=== PATIENT | female | born 1980 | race Caucasian/White ===

== ENCOUNTER 2016-05-09 12:10 | Emergency (ER) | payer OTHER ==
[~2016-05-09] VITALS: Ht 167.6 cm; Wt 122.2 kg
[~2016-05-09 12:10] MED LIST: FLEXERIL10 MG PO; MOTRIN600 MG PO; NOHOMEMEDS
[2016-05-09] MEDS ORDERED: TOPAMAX50 MG PO ×2 (12:33→12:34)
[2016-05-09] MEDS ORDERED: DIAMOX250 MG PO (12:35)
[2016-05-09 15:34] VITALS: BP 132/68
== END 2016-05-09 15:48 | disposition home or self-care (01) ==
LOC: EME 12:10
PROC: 009U3ZX Drainage of Spinal Canal, Percutaneous Approach, Diagnostic (ICD-10-PCS; principal; 2016-05-09)
DX: G93.2 Benign intracranial hypertension (principal); F17.200 Nicotine dependence, unspecified, uncomplicated
CPT/HCPCS: 99281; 99284; J1885

== ENCOUNTER → 2017-07-13 | Outpatient (CLI) | payer OTHER ==
[~2017-07-13] MED LIST changes: +DIAMOX250 MG PO; +TOPAMAX50 MG PO
[2017-07-13 17:36] LABS: APPEARANCE CLEAR/COLORLESS; CSF PROTEIN 36 mg/dL (15-45); CSF TUBE NUMBER TUBE #4; RED CELL COUNT 0 /MM^3 (0-1); WHITE CELL COUNT 1 /MM^3 (0-5)
[2017-07-13 17:41] LABS: GLUCOSE, CSF 62 mg/dL (40-80)
[2017-07-13 17:51] LABS: CSF EOSINOPHILS ND % (0-25); MONONUCLEAR WBC'S ND % (50-90); POLYNUCLEAR WBC'S ND % (0-3)
== END | disposition home or self-care (01) ==
LOC: RAD 14:47
PROVIDERS: Psychiatry & Neurology Clinical Neurophysiology
PROC: 009U3ZZ Drainage of Spinal Canal, Percutaneous Approach (ICD-10-PCS; principal; 2017-07-13)
DX: R51 Headache (principal)
CPT/HCPCS: 62270; 77003; 82945; 83873 90; 83916 90; 84157; 87205; 89051

== ENCOUNTER → 2017-08-24 | Outpatient (CLI) | payer OTHER ==
[~2017-08-24] MED LIST changes: +ADVIL,NUPRIN,M200 MG PO; +BENADRYL25 MG PO; +TYLENOL COLD &1 EACH PO
== END | disposition home or self-care (01) ==
LOC: CDC 15:51
DX: Z01.810 Encounter for preprocedural cardiovascular examination (principal); K42.9 Umbilical hernia without obstruction or gangrene
CPT/HCPCS: 93000

== ENCOUNTER 2017-08-31 06:42 | Day surgery (SDC) | payer OTHER ==
[~2017-08-31] VITALS: Ht 170.2 cm; Wt 120.2 kg
[2017-08-31 07:50] VITALS: BP 138/79
[2017-08-31] MEDS ORDERED: OXYCONTIN15 MG PO (12:22)
[2017-08-31] MEDS ORDERED: COLACE100 MG PO (12:22)
[2017-08-31] MEDS ORDERED: DILAUDID4 MG PO (12:22)
[2017-08-31] MEDS ORDERED: ONDANSETRON HCL8 MG PO (12:22)
[2017-08-31 13:06] VITALS: BP 137/66
[2017-08-31 16:22] VITALS: BP 134/60
[2017-09-01 06:24] LABS: HEMATOCRIT 41.7 % (36.0-46.0); HEMOGLOBIN 13.6 G/DL (11.9-15.5); MCH 29.3 PG (29.0-34.0); MCHC 32.6 G/DL (30.0-36.0); MCV 89.9 FL (83-99); PLATELET COUNT 185 K/uL (156-360); RBC DIS.WIDTH-CV 14.1 % (11.8-14.6); RBC DIS.WIDTH-SD 46.7 % (39-53); RED BLOOD COUNT 4.64 M/uL (3.80-5.20); WHITE BLOOD COUNT 15.7 K/uL (4.1-10.2)
[2017-09-01 06:49] VITALS: BP 136/81
[2017-09-01 06:54] LABS: CHLORIDE 106 MEQ/L (99-109); GFR ESTIMATE (CALCULATED) > 59 mL/min/; GLUCOSE 107 mg/dL (70-99); SODIUM 139 MEQ/L (136-147); UREA NITROGEN (BUN) 10 mg/dL (9-23)
[2017-09-01 06:59] LABS: POTASSIUM 4.5 MEQ/L (3.7-5.4)
[2017-09-01 07:35] VITALS: BP 110/56
[2017-09-01 12:05] VITALS: BP 120/61
[2017-09-01 15:35] VITALS: BP 124/68
[2017-09-01 19:25] VITALS: BP 121/62
[2017-09-01 23:58] VITALS: BP 148/85
[2017-09-02 03:59] VITALS: BP 144/73
[2017-09-02 07:57] VITALS: BP 152/80
[2017-09-02] MEDS ORDERED: ZITHROMAX Z-PA250 MG PO (10:48)
== END 2017-09-02 12:08 | disposition home or self-care (01) ==
LOC: SDC → 2SOUTH 11:37 → 2EAST 11:37 → ENRESERV 11:40 → 2EAST 12:55 → SDC 13:00 → 2EAST 09-02 12:08
PROVIDERS: Surgery
PROC: 0WUF4JZ Supplement Abdominal Wall with Synthetic Substitute, Percutaneous Endoscopic Approach (ICD-10-PCS; principal; 2017-08-31)
DX: K43.9 Ventral hernia without obstruction or gangrene (principal); K66.0 Peritoneal adhesions (postprocedural) (postinfection); E66.9 Obesity, unspecified; Z68.41 Body mass index [BMI] 40.0-44.9, adult; G89.18 Other acute postprocedural pain; R05 Cough; F17.200 Nicotine dependence, unspecified, uncomplicated; Z88.0 Allergy status to penicillin
CPT/HCPCS: 71046; 80048; 85027; 94640; 94760; 99202; C1781; G0378; J0131; J1100; J1644; J1885; J2250; J2370; J2405; J2710; J3010; J3370; J7120; J7643; S0028